=== PATIENT | female | born 1985 | race Caucasian/White ===

== ENCOUNTER → 2017-06-08 | Outpatient (CLI) | payer OTHER ==
[~2017-06-08] VITALS: Ht 176.5 cm; Wt 89.0 kg
[~2017-06-08] MED LIST: CENTRUM ADULTS1 EACH PO; FOLIC ACID0.4 MG PO; PRENATAL DHA200 MG PO; PROBIOTIC1 EAC7 PO
[2017-06-08 07:39] VITALS: BP 121/70
== END | disposition home or self-care (01) ==
LOC: IVINF 07:30
DX: Z31.82 Encounter for Rh incompatibility status (principal); Z3A.28 28 weeks gestation of pregnancy; Z67.41 Type O blood, Rh negative
CPT/HCPCS: 96372; J2790

== ENCOUNTER 2017-09-04 06:38 | Inpatient (IN) | payer OTHER ==
[2017-09-04] VITALS (22 sets, daily range): BP systolic 100–131; BP diastolic 57–88
[~2017-09-04] VITALS: Ht 177.8 cm; Wt 94.8 kg
[2017-09-04 07:40] LABS: BASOPHIL COUNT 0.1 K/uL (0-0.1); EOSINOPHIL (%) 0.2 % (0-5); HEMATOCRIT 42.7 % (36.0-46.0); IMMATURE GRANULOCYTE (%) 0.8 % (0.0-0.7); IMMATURE GRANULOCYTE COUNT 0.1 K/uL; INSTRUMENT ABS NEUTROPHIL CT 12.3 K/uL; LYMPHOCYTE COUNT 2.4 K/uL (1.0-2.8); MCH 30.1 PG (29.0-34.0); MCV 88.8 FL (83-99); MEAN PLAT.VOLUME 13.4 uM^3 (9.5-12.4); MONOCYTE (%) 7.5 % (3-12); MONOCYTE COUNT 1.2 K/uL (0-0.8); NEUTROPHIL (%) 76.1 % (45-76); NEUTROPHIL COUNT 12.3 K/uL (1.8-6.4); PLATELET COUNT 140 K/uL (156-360); RBC DIS.WIDTH-CV 12.5 % (11.8-14.6); RBC DIS.WIDTH-SD 40.9 % (39-53); RED BLOOD COUNT 4.81 M/uL (3.80-5.20); WHITE BLOOD COUNT 16.1 K/uL (4.1-10.2)
[2017-09-04] MEDS ORDERED: TYLENOL EXTRA500 MG PO (10:13)
[2017-09-04] MEDS ORDERED: BENADRYL25 MG PO (10:13)
[2017-09-04] MEDS ORDERED: IBUPROFEN800 MG PO (13:17)
[2017-09-05 07:25] VITALS: BP 106/75
[2017-09-05 08:27] LABS: BASOPHIL COUNT 0.1 K/uL (0-0.1); EOSINOPHIL (%) 0.8 % (0-5); EOSINOPHIL COUNT 0.1 K/uL (0-0.3); HEMATOCRIT 35.3 % (36.0-46.0); IMMATURE GRANULOCYTE (%) 0.9 % (0.0-0.7); IMMATURE GRANULOCYTE COUNT 0.1 K/uL; INSTRUMENT ABS NEUTROPHIL CT 11.1 K/uL; LYMPHOCYTE COUNT 3.7 K/uL (1.0-2.8); MCH 31.1 PG (29.0-34.0); MCHC 33.7 G/DL (30.0-36.0); MCV 92.2 FL (83-99); MEAN PLAT.VOLUME 13.3 uM^3 (9.5-12.4); MONOCYTE (%) 7.9 % (3-12); MONOCYTE COUNT 1.3 K/uL (0-0.8); NEUTROPHIL (%) 67.5 % (45-76); NEUTROPHIL COUNT 11.1 K/uL (1.8-6.4); PLATELET COUNT 117 K/uL (156-360); RBC DIS.WIDTH-CV 13.2 % (11.8-14.6); RBC DIS.WIDTH-SD 43.9 % (39-53); WHITE BLOOD COUNT 16.5 K/uL (4.1-10.2)
[2017-09-05 08:31] LABS: RED BLOOD COUNT 3.83 M/uL (3.80-5.20)
[2017-09-05 15:19] VITALS: BP 108/56
[2017-09-05 22:56] VITALS: BP 123/77
[2017-09-06 08:28] VITALS: BP 119/80
[2017-09-06] MEDS ORDERED: TYLENOL WITH C1 EACH PO (10:23)
== END 2017-09-06 14:45 | disposition home or self-care (01) | DRG 775 ==
LOC: LDRP-OP 06:38 → 2WEST 06:39 → LDRP-OP 09-29 12:04
PROVIDERS: Midwife; Nurse Practitioner
PROC: 0DQR0ZZ Repair Anal Sphincter, Open Approach (ICD-10-PCS; principal; 2017-09-04)
PROC: 10E0XZZ Delivery of Products of Conception, External Approach (ICD-10-PCS; principal; 2017-09-04)
PROC: 00HU33Z Insertion of Infusion Device into Spinal Canal, Percutaneous Approach (ICD-10-PCS; 2017-09-04)
PROC: 3E0S3BZ Introduction of Anesthetic Agent into Epidural Space, Percutaneous Approach (ICD-10-PCS; 2017-09-04)
DX: O70.20 Third degree perineal laceration during delivery, unspecified (principal); O42.02 Full-term premature rupture of membranes, onset of labor within 24 hours of rupture; Z3A.40 40 weeks gestation of pregnancy; Z37.0 Single live birth; Z87.440 Personal history of urinary (tract) infections
CPT/HCPCS: 85025; C1755; J3010; J7120

== ENCOUNTER 2018-05-31 05:47 | Day surgery (SDC) | payer OTHER ==
[~2018-05-31] VITALS: Ht 177.8 cm; Wt 83.9 kg
[~2018-05-31 05:47] MED LIST changes: +BENADRYL25 MG PO; +CENTRUM WOMEN1 EACH PO; +IBUPROFEN800 MG PO; +NAPROXEN SODIU220 M1 PO; +TYLENOL EXTRA500 MG PO; +TYLENOL WITH C1 EACH PO
[2018-05-31 06:18] LABS: BASOPHIL (%) 0.7 % (0-1); EOSINOPHIL (%) 2.2 % (0-5); EOSINOPHIL COUNT 0.1 K/uL (0-0.3); HEMATOCRIT 40.8 % (36.0-46.0); HEMOGLOBIN 13.4 G/DL (11.9-15.5); IMMATURE GRANULOCYTE (%) 0.2 % (0.0-0.7); LYMPHOCYTE (%) 51.8 % (15-42); LYMPHOCYTE COUNT 2.8 K/uL (1.0-2.8); MCH 29.3 PG (29.0-34.0); MCHC 32.8 G/DL (30.0-36.0); MCV 89.3 FL (83-99); MONOCYTE (%) 8.8 % (3-12); MONOCYTE COUNT 0.5 K/uL (0-0.8); NEUTROPHIL (%) 36.3 % (45-76); PLATELET COUNT 188 K/uL (156-360); RBC DIS.WIDTH-CV 12.7 % (11.8-14.6); RBC DIS.WIDTH-SD 41.6 % (39-53); RED BLOOD COUNT 4.57 M/uL (3.80-5.20); WHITE BLOOD COUNT 5.4 K/uL (4.1-10.2)
[2018-05-31] MEDS ORDERED: PRENATAL TABLE1 EAC3 PO (06:36)
[2018-05-31 06:37] VITALS: BP 110/76
[2018-05-31 08:55] VITALS: BP 111/69
[2018-05-31 09:49] VITALS: BP 119/79
== END 2018-05-31 10:00 | disposition home or self-care (01) ==
LOC: SDC 05:47
PROVIDERS: Obstetrics & Gynecology
DX: D06.9 Carcinoma in situ of cervix, unspecified (principal)
CPT/HCPCS: 84702; 85025; 88305; 88307; J1100; J1885; J2250; J2405; J3010